=== PATIENT | male | born 1970 | race Caucasian/White ===

== ENCOUNTER 2016-09-06 12:52 | Emergency (ER) ==
[2016-09-06 12:59] VITALS: BP 128/79; TEMP 97.6; BMI 20.9
[2016-09-06] MEDS ORDERED: TORADOL IM STA (13:00)
[2016-09-06] MEDS ORDERED: MORPHINE 4 MG/ML SYRINGE IM STA (13:00)
[2016-09-06] MEDS ORDERED: ZOFRAN 4 MG/2 ML IM STA (13:00)
[2016-09-06 13:22] LABS: BASOPHILS % (AUTO) 0.6 % (0.0-3.0); EOSINOPHILS # (AUTO) 0.1 K/ul (0.0-0.7); EOSINOPHILS % (AUTO) 1.4 % (0.0-7.0); HEMATOCRIT 45.2 % (42.0-52.0); HEMOGLOBIN 15.1 g/dl (14.0-18.0); IMMATURE GRANULOCYTE % (AUTO) 0.3 % (0.0-5.0); LYMPHOCYTES # (AUTO) 1.8 K/uL (0.60-3.4); LYMPHOCYTES % (AUTO) 25.2 (10.0-50.0); MEAN CORPUSCULAR HEMOGLOBIN 31.1 pg (27.0-31.0); MEAN CORPUSCULAR HGB CONC 33.4 (31.8-35.4); MONOCYTES # (AUTO) 0.6 K/uL (0.4-2.0); MONOCYTES % (AUTO) 8.6 (0-10); NEUTROPHILS # (AUTO) 4.6 K/ul (2.0-6.9); NEUTROPHILS % (AUTO) 63.9; PLATELET COUNT 262 10^3/uL (140-440); RED BLOOD COUNT 4.86 10^6/ul (4.70-6.10); WHITE BLOOD COUNT 7.18 K/ul (4.2-10.2)
[2016-09-06 13:24] LABS: BILIRUBIN,URINE Negative (NEGATIVE); KETONES,URINE Negative (NEGATIVE); LEUKOCYTE ESTERASE ,URINE Negative (NEGATIVE); NITRITE,URINE Negative (NEGATIVE); PH,URINE 6.5 (5-9); PROTEIN,URINE Negative (NEGATIVE); URINE, BLOOD Trace-intact (NEGATIVE)
[2016-09-06 13:25] LABS: ADD URINE MICROSCOPIC YES
[2016-09-06 13:32] LABS: GRANULAR CASTS,URINE 0-2 (NOT PRESENT)
[2016-09-06 13:45] LABS: ALBUMIN 3.9 g/dL (3.4-5.0); CALCIUM 9.3 mg/dL (8.2-10.2); POTASSIUM 4.3 mmol/L (3.5-5.1); TOTAL PROTEIN 7.2 g/dL (6.4-8.2)
[2016-09-06 13:46] LABS: ALBUMIN/GLOBULIN RATIO 1.18; ANION GAP 10.3; BILIRUBIN,TOTAL 0.19 mg/dL (0.00-1.20); BUN/CREATININE RATIO 18.18; CREATININE 0.88 mg/dL (0.60-1.10)
--- NOTE | 2016-09-06 14:17 | CT ---
Examination: Abdomen pelvis CT noncontrast. Clinical history: Left flank pain. Contiguous axial noncontrast images extend from the lung bases through the pelvic perineum. Reforma tted 2-D coronal and sagittal images were reviewed as well. Cardiac size is normal. There is no pl eural effusion. The spleen and liver appear relatively homogeneous and normal in size. Some ingest ed food is present in the stomach. Pancreatic parenchyma appears homogeneous with no transverse edouard mau dilatation. Adrenal morphology is normal. There is moderate organoaxial rotation of the right kidney. A single 2 mm calcification is noted in the upper pole of the right kidney without obstruct ion. There is no abnormal left renal calcification. No left renal obstruction. The bladder contains a small amount urine. There is no bladder calculus. Seminal vesicles are dist ended. Prostate does not appears significantly enlarged. No free fluid within the pelvis. The per irectal fat planes are intact. Impression: 1. No free fluid, well-defined abscess, mass, or significant adenopathy. 2. No renal hydronephrosis. A single small calcification noted in the upper pole of the right kidn ey. No bladder calculus. 3. [place] jejunal small bowel segment left lower quadrant without accompanying wall thickening.
--- NOTE | 2016-09-06 14:37 | ED.PDOC ---
General ED Provider: Dr. GENA GUZMÁN-ER Chief Complaint: Urinary Problem Stated Complaint: it hurts to pee and i have chills Time Seen by Physician: 12:55 Mode of Arrival: Walk-In Information Source: Patient, Family Exam Limitations: No limitations Primary Care Provider: MARY BROWN Nursing and Triage Documentation Reviewed and Agree: Yes Musculoskeletal Complaint Exam - Back Pain Complaint/Exam Mechanism of Injury: Reports: No known trauma Onset/Duration: several hours Symptoms Are: Still present Timing: Constant Initial Severity: Mild Current Severity: Mild Location: Reports: Discrete (flank pakn) Character: Reports: Dull, Aching Aggravating: Reports: Movements, Lifting Alleviating: Reports: None Associated Signs and Symptoms: Reports: Flank pain. Denies: Swelling, Redness, Bruising, Fever, Weakness, Numbness, Tingling, Abdominal pain, Bladder incontinence, Bowel incontinence, Weight loss, Pain with weight bearing Related History: Reports: Similar episode TAD Risk Factors: Reports: None AAA Risk Factors: Reports: None Cauda Equina Risk Factors: Reports: None Epidural Abcess Risk Factors: Reports: None Related Surgical History: Reports: None Focal Tenderness: No Paraspinal Muscle Tenderness: No Paraspinal Muscle Spasm: No Scoliosis: No Lordosis: No Kyphosis: No SLR Test: Right Negative, Left Negative Hip Motion Testing Pain: Right Negative, Left Negative Focal Weakness: Present: None Focal Sensory Loss: Present: None Gait: Present: Normal Differential Diagnoses: Herniated Disk, Renal Colic Review of Systems - Review Of Systems Constitutional: Reports: Chills Eyes: Reports: No symptoms Ears, Nose, Mouth, Throat: Reports: No symptoms Respiratory: Reports: No symptoms Cardiac: Reports: No symptoms GI: Reports: No symptoms : Reports: Flank pain, Pain Musculoskeletal: Reports: No symptoms Skin: Reports: No symptoms Neurological: Reports: No symptoms Endocrine: Reports: No symptoms Hematologic/Lymphatic: Reports: No symptoms All Other Systems: Reviewed and Negative Past Medical History - Past Medical History Previously Healthy: Yes Endocrine: Reports: None Cardiovascular: Reports: None Respiratory: Reports: None Hematological: Reports: None Gastrointestinal: Reports: None Genitourinary: Reports: None Neuro/Psych: Reports: None Musculoskeletal: Reports: Back Pain Cancer: Reports: None Other Pertinent Past Medical History: back problems - Surgical History General Surgical History: Reports: Orthopedic (left hand injury) - Family History Family History: Reports: Unknown - Social History Smoking Status: Current every day smoker Hx Substance Use: No Alcohol Screening: None Lives: With family Physical Exam - Physical Exam Appearance: Well-appearing, No pain distress, Well-nourished Pain Distress: Mild Eyes: RANDY ENT: Ears normal Neck: Supple Respiratory: Airway patent Cardiovascular: RRR, Pulses normal, No rub, No murmur GI/: Soft Musculoskeletal: Normal strength, ROM intact, No edema, No calf tenderness Skin: Warm, Dry, Normal color Neurological: Sensation intact, Motor intact, Reflexes intact, Cranial nerves intact, Alert, Oriented Psychiatric: Affect appropriate, Mood appropriate Interpretation - Radiology Interpretation Radiology Interpretation By: Radiologist Radiology Results: Negative Exam Interpreted: CT Scan Re-Evaluation - Re-Evaluation Time of Re-Evaluation: 14:37 Status: Improved Vital Signs Stable: Yes Pain Level: 0 Appearance: NAD Lungs: Clear Skin: Warm and Dry Neuro: Alert and Oriented X3 CV: RRR Critical Care Note - Critical Care Note Total Time (mins): 0 Course - Course Hematology/Chemistry: 09/06/16 13:10 09/06/16 13:10 Orders, Labs, Meds: Lab Review 09/06/16 13:10 WBC 7.18 RBC 4.86 Hgb 15.1 Hct 45.2 MCV 93.0 MCH 31.1 H MCHC 33.4 RDW Coeff of Leny 14.1 Plt Count 262 Immature Gran % (Auto) 0.3 Neut % (Auto) 63.9 Lymph % (Auto) 25.2 [place] % (Auto) 8.6 Eos % (Auto) 1.4 Baso % (Auto) 0.6 Immature Gran # (Auto) 0.0 Neut # 4.6 Lymph # 1.8 [place] # 0.6 Eos # 0.1 Baso # 0.0 Sodium 143 Potassium 4.3 Chloride 107 Carbon Dioxide 30 Anion Gap 10.3 BUN 16 Creatinine 0.88 Estimated GFR (MDRD) 94.00 BUN/Creatinine Ratio 18.18 Glucose 87 Calcium 9.3 Total Bilirubin 0.19 AST 16 ALT 12 Alkaline Phosphatase 61 Total Protein 7.2 Albumin 3.9 Globulin 3.3 Albumin/Globulin Ratio 1.18 Amylase 128 H Lipase 100 H Urine Color Yellow Urine Clarity Clear Urine pH 6.5 Ur Specific [place] 1.020 Urine Protein Negative Urine Glucose (UA) Negative Urine Ketones Negative Urine Blood Trace-intact Urine Nitrite Negative Urine Bilirubin Negative Urine Urobilinogen 0.2 Ur Leukocyte Esterase Negative Urine Microscopic RBC 2-5 Ur Squamous Epith Cells Not present Granular Casts 0-2 Orders Category Date Time Status AMYLASE Stat LAB 09/06/16 13:10 Completed CBC W/ AUTO DIFF Stat LAB 09/06/16 13:10 Completed COMPREHENSIVE METABOLIC PANEL Stat LAB 09/06/16 13:10 Completed LIPASE Stat LAB 09/06/16 13:10 Completed URINALYSIS C & S IF INDICATED Stat LAB 09/06/16 13:10 Completed Ketorolac Tromethamine [Toradol] MEDS 09/06/16 13:00 Discontinued 60 mg IM ONCE STA Morphine Sulfate [Morphine 4 mg/ml Syringe] MEDS 09/06/16 13:00 Discontinued 4 mg IM ONCE STA Ondansetron HCl/Pf [Zofran 4 mg/2 ml] MEDS 09/06/16 13:00 Discontinued 4 mg IM ONCE STA CT ABDOMEN/PELVIS WO CONTRAST Stat RADS 09/06/16 13:00 Completed Medications Discontinued Medications Generic Name Dose Route Start Last Admin Trade Name Osmar PRN Reason Stop Dose Admin Ketorolac Tromethamine 60 mg 09/06/16 13:00 09/06/16 13:24 Toradol IM 09/06/16 13:01 60 mg ONCE STA Administration Morphine Sulfate 4 mg 09/06/16 13:00 09/06/16 13:23 Morphine 4 Mg/Ml Syringe IM 09/06/16 13:01 4 mg ONCE STA Administration Ondansetron HCl 4 mg 09/06/16 13:00 09/06/16 13:25 Zofran 4 Mg/2 Ml IM 09/06/16 13:01 4 mg ONCE STA Administration Vital Signs: Temp Pulse Resp BP Pulse Ox 09/06/16 12:55 97.6 F 82 18 128/79 98 Departure - Departure Time of Disposition: 14:37 Disposition: HOME SELF-CARE Discharge Problem: Flank pain Instructions: Flank Pain (ED) Condition: Good Pt referred to PMD for follow-up: Yes Additional Instructions: cipro 500mg bid x 7 days--norco 5mg q 4hrs prn pain #10--f/u wtih pcp Allergies/Adverse Reactions: Allergies No Known Allergies Allergy (Verified 09/06/16 12:54) Disposition Discussed With: Patient
== END 2016-09-06 14:45 | disposition home or self-care (01) ==
LOC: ED 12:52
DX: R10.9 Unspecified abdominal pain (principal); R30.0 Dysuria; F17.210 Nicotine dependence, cigarettes, uncomplicated
CPT/HCPCS: 36415; 80053; 81001; 82150; 83690; 85025; 96372; 99283

== ENCOUNTER 2016-09-24 15:34 | Outpatient (CLI) | END 2016-09-24 15:35 | disposition home or self-care (01) | LOC: AMBL 15:34 | PROVIDERS: ATTEND Internal Medicine | DX: R07.9 Chest pain, unspecified (principal); R20.0 Anesthesia of skin; R06.9 Unspecified abnormalities of breathing; R53.1 Weakness; R42 Dizziness and giddiness ==

== ENCOUNTER 2016-12-27 20:27 | Emergency (ER) ==
[2016-12-27 20:29] VITALS: BMI 20.9
[2016-12-27 20:35] VITALS: BP 117/76; TEMP 99.1
[2016-12-27] MEDS ORDERED: TORADOL IM STA (20:44)
--- NOTE | 2016-12-27 20:47 | ED.PDOC ---
General ED Provider: Dr. RENARD DUTTON Chief Complaint: Foot Pain/Injury Stated Complaint: trailor went over left foot 2 days ago, ever since hurting to walk and stand, the foot is swollen. Time Seen by Physician: 20:45 Mode of Arrival: Walk-In Information Source: Patient Primary Care Provider: MARY BROWN Nursing and Triage Documentation Reviewed and Agree: Yes Musculoskeletal Complaint Exam - Ankle/Foot Complaint/Exam Location of Injury: Reports: Left, Ankle, Foot Mechanism of Injury: Reports: Trauma Symptoms Are: Reports: Still present Onset of Pain: Reports: Immediate Initial Severity: Moderate Current Severity: Moderate Location: Reports: Discrete Character: Reports: Aching, Throbbing Alleviating: Reports: None Aggravating: Reports: Movement, Weight bearing Able to Bear Weight: Yes Associated Signs and Symptoms: Reports: Swelling. Denies: Redness, Bruising, Fever, Weakness, Numbness, Tingling Gout Risk Factors: Reports: None Related Surgical History: Reports: None Lower Extremity Findings: Present: Swelling, Tenderness, Limited range of motion Tenderness: Present: Medial malleolus, Lateral malleolus, Midfoot Limited Range of Motion: Present: Inversion, Eversion, Dorsiflexion, Plantarflexion Differential Diagnosis: Closed Fracture, Sprain Review of Systems - Review Of Systems Constitutional: Reports: No symptoms Eyes: Reports: No symptoms Ears, Nose, Mouth, Throat: Reports: No symptoms Respiratory: Reports: No symptoms Cardiac: Reports: No symptoms GI: Reports: No symptoms : Reports: No symptoms Musculoskeletal: Reports: Joint pain, Joint swelling Skin: Reports: No symptoms Neurological: Reports: No symptoms Endocrine: Reports: No symptoms Hematologic/Lymphatic: Reports: No symptoms All Other Systems: Reviewed and Negative Past Medical History - Past Medical History Previously Healthy: Yes Endocrine: Reports: None Cardiovascular: Reports: None Respiratory: Reports: None Hematological: Reports: None Gastrointestinal: Reports: None Genitourinary: Reports: None Neuro/Psych: Reports: None Musculoskeletal: Reports: Back Pain Cancer: Reports: None Other Pertinent Past Medical History: back problems - Surgical History General Surgical History: Reports: Orthopedic (left hand injury) - Family History Family History: Reports: Unknown - Social History Smoking Status: Current every day smoker, Light tobacco smoker Smoking Cessation Counseling Time: > 3 min - 10 min Hx Substance Use: No Alcohol Screening: None - Immunizations Tetanus Shot up to Date: Yes Physical Exam - Physical Exam Appearance: Well-appearing, No pain distress, Well-nourished Eyes: RANDY, EOMI, Conjunctiva clear ENT: Ears normal, Nose normal, Oropharynx normal Respiratory: Airway patent, Breath sounds clear, Breath sounds equal, Respirations nonlabored Cardiovascular: RRR, Pulses normal, No rub, No murmur GI/: Soft, Nontender, No masses, Bowel sounds normal, No Organomegaly Musculoskeletal: Normal strength, ROM intact, No edema, No calf tenderness Skin: Warm, Dry, Normal color Neurological: Sensation intact, Motor intact, Reflexes intact, Cranial nerves intact, Alert, Oriented Psychiatric: Affect appropriate, Mood appropriate Interpretation - Radiology Interpretation Radiology Interpretation By: ED Physician Radiology Results: Positive Critical Care Note - Critical Care Note Total Time (mins): 0 Course - Course Orders, Labs, Meds: Orders Category Date Time Status Morphine Sulfate [Morphine 2 mg/ml Syringe] MEDS 12/27/16 21:00 Discontinued 2 mg IM ONCE STA Ondansetron HCl/Pf [Zofran 4 mg/2 ml] MEDS 12/27/16 21:00 Discontinued 4 mg IM ONCE STA ANKLE, LEFT MIN 3 VIEWS Stat RADS 12/27/16 20:44 Completed FOOT, LEFT 3 VIEWS Stat RADS 12/27/16 20:44 Taken Medications Discontinued Medications Generic Name Dose Route Start Last Admin Trade Name Gustavoq PRN Reason Stop Dose Admin Morphine Sulfate 2 mg 12/27/16 21:00 Morphine 2 Mg/Ml Syringe IM 12/27/16 21:01 ONCE STA Ondansetron HCl 4 mg 12/27/16 21:00 Zofran 4 Mg/2 Ml IM 12/27/16 21:01 ONCE STA Vital Signs: Temp Pulse Resp BP Pulse Ox 12/27/16 20:29 99.1 F 86 20 117/76 97 Departure - Departure Time of Disposition: 21:07 Disposition: HOME SELF-CARE Discharge Problem: Calcaneal fracture Qualifiers: Encounter type: initial encounter Calcaneus location: body Fracture type: closed Fracture alignment: nondisplaced Laterality: left Qualifier Code: ( S92.015A) Nondisplaced fracture of body of left calcaneus, initial encounter for closed fracture Instructions: Calcaneal Fracture (ED) Condition: Stable Pt referred to PMD for follow-up: Yes Additional Instructions: rest brigido wrap needs f/u with Ortho in AM. Prescriptions: Hydrocodone Bit/Acetaminophen [Nabb 7.5-325] 1 each PO Q8H #14 tablet Allergies/Adverse Reactions: Allergies No Known Allergies Allergy (Verified 12/27/16 20:35) Home Medications: Ambulatory Orders Hydrocodone Bit/Acetaminophen [Nabb 7.5-325] 1 each PO Q8H #14 tablet 12/27/16 Disposition Discussed With: Patient
[2016-12-27] MEDS ORDERED: ZOFRAN 4 MG/2 ML IM STA (21:00)
[2016-12-27] MEDS ORDERED: MORPHINE 2 MG/ML SYRINGE IM STA (21:00)
--- NOTE | 2016-12-27 21:03 | DI ---
Exam: Three x-rays of the left ankle. Comparison: None available. Reason for exam: Injury with pain. FINDINGS: No acute fracture or dislocation. The talar dome is intact. There is no widening of the medial clear space. Impression: No acute fracture or dislocation in the left ankle.
--- NOTE | 2016-12-27 21:07 | DI ---
Exam: Three x-rays of the left foot. Comparison: None available. Reason for exam: Injury with pain. FINDINGS: There is a comminuted fracture of the calcaneus. No obvious dislocation. No other fract ures are seen. Impression: Comminuted intra-articular calcaneal fracture. Image interpretation faxed to [facility] at 2102 hours on 12/27/2016
== END 2016-12-27 21:42 | disposition home or self-care (01) ==
LOC: ED 20:27
DX: S92.015A Nondisplaced fracture of body of left calcaneus, initial encounter for closed fracture (principal); W22.8XXA Striking against or struck by other objects, initial encounter; F17.210 Nicotine dependence, cigarettes, uncomplicated
CPT/HCPCS: 96372; 99283

== ENCOUNTER 2017-06-05 10:57 | Emergency (ER) ==
[2017-06-05 11:04] VITALS: BP 109/78; TEMP 97.3; BMI 19.8
--- NOTE | 2017-06-05 11:13 | ED.PDOC ---
General ED Provider: Dr. CORRINE CASTILLO Chief Complaint: Headache Stated Complaint: Severe global headache x 2 days. Pain worse in left frontal/ temporal region. "worst headache I've ever had." Nausea/vomiting. No diarrhea. No fever or chills. Mild photophobia. No history of head trauma. Time Seen by Physician: 11:08 Mode of Arrival: Wheelchair Information Source: Patient Nursing and Triage Documentation Reviewed and Agree: Yes Neurological Complaint Exam - Headache Complaint/Exam Onset: Sudden Duration: 2 days Symptoms Are: Still present Timing: Constant Episodes Lasting: Days Worst Headache Ever: Yes Initial Severity: Moderate Current Severity: Severe Location: Diffuse, Left, Frontal, Temporal Character: Reports: Sharp, Throbbing Aggravating: Reports: Exertion, Bright lights Alleviating: Reports: None Associated Signs and Symptoms: Reports: Nausea, Vomiting Related Surgical History: Reports: None SAH Risk Factors: Reports: Smoking Meningitis Risk Factors: Reports: None SDH Risk Factors: Reports: Male. Denies: Recent trauma Temporal Arteritis Risk Factors: Reports: None Normal Head CT Within Last 12 Months: No Fundoscopic Exam: Present: Normal Findings Papilledema Present: No Temporal Artery Tenderness: Present: None Sinus Tenderness: Present: None TMJ Tenderness: Present: None Meningeal Signs Positive: No Pain on Passive Flexion-Positive Kernig's: No ROM Limited In: No Limitiations Focal Weakness: Present: None Focal Sensory Loss: Present: None Gait: Normal Nystagmus Present: No Gag Reflex Present: Yes [id number]: Normal Findings Romberg Test Positive: No Babinski Sign: Negative Right, Negative Left Heel to Toe Normal: Yes Differential Diagnoses: Epidural Hematoma, Subdural Hematoma, Migraine, Subarachnoid Hemorrhage, Tension Headache Review of Systems - Review Of Systems Constitutional: Reports: Malaise Eyes: Reports: Photophobia (mild) Ears, Nose, Mouth, Throat: Reports: No symptoms Respiratory: Reports: No symptoms Cardiac: Reports: No symptoms GI: Reports: Nausea, Vomiting : Reports: No symptoms Musculoskeletal: Reports: No symptoms Skin: Reports: No symptoms Neurological: Reports: Headache Endocrine: Reports: No symptoms Hematologic/Lymphatic: Reports: No symptoms All Other Systems: Reviewed and Negative Past Medical History - Past Medical History Previously Healthy: Yes Endocrine: Reports: None Cardiovascular: Reports: None Respiratory: Reports: None Hematological: Reports: None Gastrointestinal: Reports: None Genitourinary: Reports: None Neuro/Psych: Reports: None Musculoskeletal: Reports: Back Pain Cancer: Reports: None Other Pertinent Past Medical History: back problems - Surgical History General Surgical History: Reports: Orthopedic (left hand injury) - Family History Family History: Reports: Unknown - Social History Smoking Status: Current every day smoker Hx Substance Use: No Alcohol Screening: None Lives: With family - Immunizations Tetanus Shot up to Date: No Influenza Vaccine within 12 Months: No Pneumococcal Vaccine up to Date: No Physical Exam - Physical Exam Appearance: Well-appearing, Well-nourished Ill-appearing: None Pain Distress: Severe Eyes: RANDY, EOMI, Conjunctiva clear ENT: Ears normal, Nose normal, Oropharynx normal Neck: Supple (no nuchal rigidity) Respiratory: Airway patent, Breath sounds clear, Breath sounds equal, Respirations nonlabored Cardiovascular: RRR, Pulses normal, No rub, No murmur GI/: Soft, Nontender, No masses, Bowel sounds normal, No Organomegaly Musculoskeletal: Normal strength, ROM intact, No edema, No calf tenderness Skin: Warm, Dry, Normal color Neurological: Sensation intact, Motor intact, Reflexes intact, Cranial nerves intact, Alert, Oriented Psychiatric: Affect appropriate, Mood appropriate Interpretation - Radiology Interpretation Radiology Interpretation By: Radiologist Radiology Results: Negative Exam Interpreted: CT Scan Xray Comments: Head: unremarkable Critical Care Note - Critical Care Note Total Time (mins): 0 Course - Course Hematology/Chemistry: 06/05/17 11:24 06/05/17 11:24 Orders, Labs, Meds: Lab Review 06/05/17 06/05/17 11:24 11:24 WBC 3.96 L RBC 4.97 Hgb 15.4 Hct 43.2 MCV 86.9 MCH 31.0 MCHC 35.6 H RDW Coeff of Leny 12.9 Plt Count 126 L Neutrophils % (Manual) 64.0 Band Neutrophils % 5.0 Lymphocytes % (Manual) 22.0 Monocytes % (Manual) 4.0 Reactive Lymphocytes 5.0 Anisocytosis Not present Sodium 136 Potassium 4.2 Chloride 101 Carbon Dioxide 28 Anion Gap 11.2 BUN 9 Creatinine 0.69 Estimated GFR (MDRD) 125.00 BUN/Creatinine Ratio 13.04 Glucose 93 Calcium 9.2 Total Bilirubin 0.46 AST 18 ALT 18 Alkaline Phosphatase 72 Total Protein 6.9 Albumin 3.5 Globulin 3.4 Albumin/Globulin Ratio 1.03 Orders Category Date Time Status CBC W/ AUTO DIFF Stat LAB 06/05/17 11:24 Completed COMPREHENSIVE METABOLIC PANEL Stat LAB 06/05/17 11:24 Completed MANUAL DIFFERENTIAL Stat LAB 06/05/17 11:24 Completed Morphine Sulfate [Morphine 2 mg/ml Syringe] MEDS 06/05/17 12:55 Discontinued 2 mg IM ONCE STA Promethazine HCl [Phenergan 25 mg/ml Vial] MEDS 06/05/17 12:55 Discontinued 25 mg IM ONCE STA CT HEAD W/O CONTRAST Stat RADS 06/05/17 11:13 Completed Medications Discontinued Medications Generic Name Dose Route Start Last Admin Trade Name Osmar PRN Reason Stop Dose Admin Morphine Sulfate 2 mg 06/05/17 12:55 06/05/17 13:07 Morphine 2 Mg/Ml Syringe IM 06/05/17 12:56 2 mg ONCE STA Administration Promethazine HCl 25 mg 06/05/17 12:55 06/05/17 13:08 Phenergan 25 Mg/Ml Vial IM 06/05/17 12:56 25 mg ONCE STA Administration Vital Signs: Temp Pulse Resp BP Pulse Ox 06/05/17 10:59 97.3 F L 60 22 109/78 100 Departure - Departure Time of Disposition: 13:31 Disposition: HOME SELF-CARE Discharge Problem: Headache Qualifiers: Headache type: unspecified Headache chronicity pattern: acute headache Intractability: not intractable Qualified Code(s): R51 - Headache Instructions: General Headache (ED) Condition: Good Pt referred to PMD for follow-up: No (see doctor if worsens or no better in 3 days) Allergies/Adverse Reactions: Allergies No Known Allergies Allergy (Verified 06/05/17 10:59) Home Medications: Ambulatory Orders 1 [No Reported Medications] 06/05/17 Disposition Discussed With: Patient, Family
[2017-06-05 11:33] LABS: HEMATOCRIT 43.2 % (42.0-52.0); HEMOGLOBIN 15.4 g/dl (14.0-18.0); MEAN CORPUSCULAR HGB CONC 35.6 (31.8-35.4); MEAN CORPUSCULAR VOLUME 86.9 fl (80.0-94.0); PLATELET COUNT 126 10^3/uL (140-440); RED BLOOD COUNT 4.97 10^6/ul (4.70-6.10); WHITE BLOOD COUNT 3.96 K/ul (4.2-10.2)
[2017-06-05 11:43] LABS: ANISOCYTOSIS NOT PRESENT (NOT PRESENT)
--- NOTE | 2017-06-05 11:53 | CT ---
EXAM: CT head without contrast. HISTORY: Worst headache of life. COMPARISON: 07/07/2015. TECHNIQUE: Multiple axial images of the brain were obtained from the skull base through the vertex w ithout intravenous contrast. FINDINGS: There is no intracranial hemorrhage or extraaxial collection. The chavis-white differentiat ion is maintained without evidence for acute large vascular territory infarction. The cortical sulci and basal cisterns are well visualized. There is no hydrocephalus, mass effect, or midline shift. The paranasal sinuses and mastoid air cells are clear. The calvarium is intact. Since the prior ceci dy, there has been no significant interval change. IMPRESSION: No acute intracranial abnormality.
[2017-06-05 11:54] LABS: ALBUMIN 3.5 g/dL (3.4-5.0); ALBUMIN/GLOBULIN RATIO 1.03; ANION GAP 11.2; BILIRUBIN,TOTAL 0.46 mg/dL (0.00-1.20); BUN/CREATININE RATIO 13.04; CALCIUM 9.2 mg/dL (8.2-10.2); CREATININE 0.69 mg/dL (0.60-1.10); POTASSIUM 4.2 mmol/L (3.5-5.1); TOTAL PROTEIN 6.9 g/dL (6.4-8.2)
[2017-06-05] MEDS ORDERED: PHENERGAN 25 MG/ML VIAL IM STA (12:55)
[2017-06-05] MEDS ORDERED: MORPHINE 2 MG/ML SYRINGE IM STA (12:55)
== END 2017-06-05 13:43 | disposition home or self-care (01) ==
LOC: ED 10:57
DX: R51 Headache (principal); F17.210 Nicotine dependence, cigarettes, uncomplicated
CPT/HCPCS: 36415; 80053; 85007; 85025; 96372; 99283